=== PATIENT | male | born 1995 | race Caucasian/White ===

== ENCOUNTER 2017-02-23 08:31 | Emergency (ER) | payer BC ==
[~2017-02-23] VITALS: Ht 162.6 cm; Wt 67.9 kg
[2017-02-23 08:38] VITALS: BP 122/80; PULSE 82; TEMP 36.9; O2SAT 99; Ht 162.6 cm; Wt 67.9 kg
[2017-02-23] MEDS ORDERED: LEVO-14 PO (08:44)
[2017-02-23] MEDS ORDERED: CEFD300C2 PO (09:02)
[2017-02-23] MEDS ORDERED: OXYCODONE HCL IR 5 MG TAB (IMMEDIATE RELEASE) PO STA (09:04)
[2017-02-23] MEDS ORDERED: IBUPROFEN 800 MG TAB PO STA (09:04)
[2017-02-23] MEDS ORDERED: IBUPROFEN 200 MG TAB ONE (09:34)
--- NOTE | 2017-02-23 16:44 | EMERGENCY ROOM VISIT NOTE ---
History First contact with patient: 08:46 Chief Complaint: EAR PAIN Stated Complaint: COUGHING UP BLOOD, EARS, TONSILITIS History of Present Illness The patient is a 21 year old male who presents to the Emergency Room with complaints of bilateral ear pain, right worse than left, mild sore throat and productive cough. The patient reports that he has been sick for the past 5 days. He was seen at the [facility] urgent care center last with a negative rapid strep test. Cultures were ordered, and the patient was treated with penicillin. The patient reports that the tonsillar pain has somewhat improved, but now has severe ear pain, right worse than left. The year pain really started to worsen last evening. He also reports a mild productive cough with bloody sputum upon awakening this morning. She has had moderate coughing. He has not checked his temperature. He rates his discomfort a 7 out of 10. Review of Systems 10 system review was performed and was negative except for pertinent positives and negatives as indicated in history of present illness Past Medical/Surgical History Medical Problems: (1) No significant past medical history Surgical Problems: (1) No history of previous surgery Family History FH: cancer FH: heart disease Social History Smoking Status: Never Smoker Alcohol Use: none Marital Status: single Housing Status: lives with family Occupation Status: employed Current/Historical Medications Scheduled Cefdinir (Omnicef), 1 CAP PO BID Levocetirizine Dihydrochloride (Levocetirizine Dihydrochl), 1 TAB PO DAILY Allergies Coded Allergies: No Known Allergies (Unverified , 02/23/17) Physical Exam Vital Signs Date Time Temp Pulse Resp B/P Pulse Ox O2 Delivery O2 Flow Rate FiO2 02/23/17 08:38 36.9 82 20 122/80 99 Room Air Pain Rating (0-10): 8.0 Physical Exam CONSTITUTIONAL: Healthy and well nourished. Alert and oriented X 3 with positive affect. Patient appears in mild discomfort from pain. HEENT: Normocephalic, atraumatic. Pupils equal, round and reactive. Examination shows significant bilateral TM erythema, right worse than left. TMs are intact. Nares are clear. OROPHARYNX: Mild posterior pharyngeal erythema without tonsillar hypertrophy or exudates. Negative trismus. LYMPHATICS: No cervical chain adenopathy noted. NECK: Full active range of motion without discomfort. RESPIRATORY: Clear to auscultation bilaterally with no wheezing, crackles, rhonchi or stridor. CARDIOVASCULAR: Regular rate and rhythm with no murmurs, rubs or gallops. MUSCULOSKELETAL: Full range of motion of all joints without discomfort. INTEGUMENTARY: No rash or other significant dermatologic conditions noted. NEUROLOGIC: No focal neurologic deficits noted. Medical Decision & Procedures Medications Administered Medications (Trade) Dose Ordered Sig/Brennen Route Start Time Stop Time Status Last Admin Dose Admin Oxycodone HCl (Roxicodone Immediate Rel Tab) 5 mg NOW STAT PO 02/23/17 09:04 02/23/17 09:05 DC 02/23/17 09:31 5 MG Ibuprofen (Advil Tab) 800 mg STK-MED ONCE .ROUTE 02/23/17 09:34 02/23/17 09:35 DC 02/23/17 09:32 800 MG ED Course Patient history and physical exam were performed. Nurse's notes were reviewed. Vital signs were reviewed and were normal. The patient was provided a prescription for Omnicef. He was encouraged to alternate ibuprofen and Tylenol for baseline pain relief. The patient did receive an OxyIR 5 mg in the emergency department, and prescription for the same. No drinking or driving while taking this medication. I did encourage the patient to follow-up with his PCP or ENT physician in 7 days, especially if symptoms are not improving, or the patient develops drainage from the right ear. The patient and mother were happy with plan of care, and voiced understanding of all discharge instructions Medical Decision Impression Primary Impression: Bilateral otitis media Additional Impression: Bronchitis Departure Information Dispostion Home / Self-Care Prescriptions Cefdinir (OMNICEF) 300 Mg Cap 1 CAP PO BID for 10 Days, #20 CAP Prov: Michael Alvarez PA 02/23/17 Referrals Shakila Rizzo M.D. Mattern, Joy C.P.A. (PCP) No Doctor, Assigned Forms HOME CARE DOCUMENTATION FORM, IMPORTANT VISIT INFORMATION Patient Instructions My [facility], ED Otitis Media Abx Tx Additional Instructions Complete all Omnicef antibiotics as prescribed. Ibuprofen 800 mg and/or Tylenol 1000 mg every 8 hours. You may also alternate these medications for more effective pain relief: Ibuprofen --4 HRS--> Tylenol --4 HRS--> ibuprofen --4 HRS--> Tylenol .... OxyIR if needed for worse pain. Do not drink alcohol or drive while taking OxyIR. Follow-up with your family doctor or ENT (Dr. Rizzo) in one week, sooner with any developing drainage from the ears. Problem Qualifiers Primary Impression: Bilateral otitis media Otitis media type: suppurative Chronicity: acute Recurrence: not specified as recurrent Spontaneous tympanic membrane rupture: without spontaneous rupture Qualified Codes: H66.003 - Acute suppurative otitis media without spontaneous rupture of ear drum, bilateral
== END 2017-02-23 09:34 | disposition home or self-care (01) ==
LOC: C.EDB 08:31
DX: H66.003 Acute suppurative otitis media without spontaneous rupture of ear drum, bilateral (principal); J40 Bronchitis, not specified as acute or chronic; Z80.9 Family history of malignant neoplasm, unspecified

== ENCOUNTER → 2017-03-02 | Outpatient (CLI) | payer BC ==
[~2017-03-02] MED LIST: CEFD300C2 PO; LEVO-14 PO
--- NOTE | 2017-03-02 12:23 | DIAGNOSTIC IMAGING REPORT ---
CHEST 2 VIEWS ROUTINE CLINICAL HISTORY: Blood-tinged sputum. COMPARISON STUDY: No previous studies for comparison. FINDINGS: Lung volumes are normal. Lungs are clear. There is no pneumothorax or pleural effusion. Cardiac size is normal. Mediastinal contours are normal. Pulmonary vascularity is normal. IMPRESSION: No acute cardiopulmonary findings. Electronically signed by: Trell Saba M.D. 03/02/2017 12:22 PM Dictated Date/Time: 03/02/2017 12:20 PM
== END | disposition home or self-care (01) ==
LOC: C.RADBC 11:32
PROVIDERS: ATTEND Physician Assistant Medical
DX: R04.2 Hemoptysis (principal)